=== PATIENT | female | born 1990 | race Caucasian/White ===

== ENCOUNTER 2022-03-24 08:02 | Outpatient (CLI) | payer OTHER, SELFPAY | END 2022-03-24 08:03 | disposition home or self-care (01) | LOC: ANHLAB 08:04 | PROVIDERS: Visit Provider Obstetrics & Gynecology | DX: R10.2 Pelvic and perineal pain (principal); Z01.818 Encounter for other preprocedural examination | CPT/HCPCS: 36415; 86850; 86900; 86901 ==

== ENCOUNTER 2022-03-25 01:03 | Day surgery (SDC) | payer OTHER, SELFPAY ==
--- NOTE | 2022-03-22 17:42 | SUR.PREOP ---
Report to the Outpatient Waiting Room, entrance under the green pavilion located off [facility], at time 0915 on date 03/25/22. OR Time: 1115. - You and your visitor will be asked a series of questions to screen for COVID 19 for your protection. - Only one visitor is allowed at this time. - The patient visitor is requested to leave or wait in car when not with patient. - A mask is required within the hospital. Patients may have clear liquids (water, carbonated beverages, clear teas, apple juice) until 3 hours prior to surgery with a maximum of 20 ounces. - NO CLEAR LIQUIDS AFTER 0815 - No food from midnight until time of surgery - Infants may have breast milk until 4 hours before surgery, formula 6 hours prior to surgery. - Children will be allowed to drink immediately following surgery. If applicable, please bring a bottle or sippy cup to assist with drinking. Juice, water, soda, and popsicles are readily available. For infants on formula, please bring formula the day of surgery. Pacifiers are allowed. Take the following medications with a SIP of water the morning of surgery: HYDROXYCHLOROQUINE, NORCO Please no make-up, nail montserratian, hairspray, perfume, deodorant, or body powder the day of surgery. No jewelry (including any body piercings) or valuables the day of surgery, leave them at home. Please take a shower or bath the night before, or the morning of, surgery with an antibacterial soap. Wear comfortable, loose fitting clothing. Children are encouraged to wear pajamas. - Jewelry must be removed prior to entering the operating room. Rings and piercings that are not removed may be cut off. - The hospital will not accept responsibility for valuables. - Please leave all valuables, including medications, at home the day of surgery. If you are going home after surgery, a licensed tow car driver must drive you home. - NO public transportation without another adult. - We recommend that an adult stay with you for 24 hours following discharge. - We also recommend that you do not drive, make important decision, drink alcoholic beverages, or take any drugs that were not prescribed by your health care provider for at least 24 hours after your discharge time. For Pediatric surgeries, we recommend two adults accompany the child home (only one inside the building at this time). Follow any additional instructions given to you from your surgeon. If you or anyone in your household have experienced Covid symptoms in the past week, please notify your surgeon or the nurse liaison at the phone number below for possible testing. Telephone instructions given to FLOYD COYNE and asked if any additional questions and then verbalized understanding. Patient advised to call surgeon office or pre surgery nurse liaison [phone] if any additional questions.
[2022-03-22 17:50] VITALS: BMI 23.5
--- NOTE | 2022-03-24 16:03 | WPDANESEPPF ---
Anes - Initial Pre Proc Eval Procedure: Operation Date: 03/25/22 11:15 Proposed Procedures p Diagnostic Laparoscopy - Taj Bob MD <Heath Jeffers DO - Last Filed: 03/24/22 16:04> Date/Time: 03/24/22 16:03 <Heath Jeffers DO - Last Filed: 03/24/22 16:04> Surgeon: Taj Bob MD <Heath Jeffers DO - Last Filed: 03/24/22 16:04> Pre Op Diagnosis: Pelvic Pain <Heath Jeffers DO - Last Filed: 03/24/22 16:04> Patient Data Age: 31 Gender: F Height: 1.55 m Weight: 56.5 kg <Heath Jeffers DO - Last Filed: 03/24/22 16:04> Allergies Allergy/AdvReac Type Severity Reaction Status Date / Time Cephalosporins Allergy Intermediate Nausea and Verified 03/25/22 09:42 Vomiting Sulfa (Sulfonamide Allergy Intermediate HIVES Verified 03/25/22 09:42 Antibiotics) <Heath Jeffers DO - Last Filed: 03/24/22 16:04> Home Medications Medication Instructions Recorded Confirmed Type estradiol 2 mg tablet 1 tablet PO DAILY 03/22/22 03/25/22 History hydrocodone 5 mg-acetaminophen 325 1 tablet PO Q4-6H PRN Pain 03/22/22 03/22/22 History mg tablet hydroxychloroquine 200 mg tablet 1 tablet PO BID 03/22/22 03/25/22 History hydrocodone 5 mg-acetaminophen 325 1 tablet PO Q4H PRN pain #30 tabs 03/25/22 Rx mg tablet <Heath Jeffers DO - Last Filed: 03/24/22 16:04> HCG: negative <Shoshana Cordoba CRNA - Last Filed: 03/25/22 10:42> Patient hx anesthesia problems: none <Shoshana Cordoba CRNA - Last Filed: 03/25/22 10:42> Family hx anesthesia problems: none <Shoshana Cordoba CRNA - Last Filed: 03/25/22 10:42> Results Review: All pre-operative results and documents have been reviewed as part of the pre-operative evaluation. <Heath Jeffers DO - Last Filed: 03/24/22 16:04> [facility] Past Medical History Medical History: Medical History Anemia Asthma Endometriosis Migraine Systemic lupus erythematosus <Heath Jeffers DO - Last Filed: 03/24/22 16:04> Surgical History Surgical History: Surgical History History of History of hysterectomy <Heath Jeffers DO - Last Filed: 03/24/22 16:04> Social History Social History: Social History Smoking status: Never smoker Living arrangements: with family Spiritual care concerns: No <Heath Jeffers DO - Last Filed: 03/24/22 16:04> Anes - Eval Final PreProcedure Day of Procedure 03/24/22 16:03 <Heath Jeffers DO - Last Filed: 03/24/22 16:04> Patient weight: normal <Heath Jeffers DO - Last Filed: 03/24/22 16:04> Heart: regular rate and rhythm <Heath Jeffers DO - Last Filed: 03/24/22 16:04> Lungs: clear to auscultation <Heath Jeffers DO - Last Filed: 03/24/22 16:04> Airway: Mallampati scale class II <Heath Jeffers DO - Last Filed: 03/24/22 16:04> Neurological: alert and oriented <Heath Jeffers DO - Last Filed: 03/24/22 16:04> Last oral intake: >/= 8 hours <Heath Jeffers DO - Last Filed: 03/24/22 16:04> ASA classification: III <Heath Jeffers DO - Last Filed: 03/24/22 16:04> Emergent: no <Heath Jeffers DO - Last Filed: 03/24/22 16:04> Anesthetic plan: proceed <Heath Jeffers DO - Last Filed: 03/24/22 16:04> Anesthesia type and monitoring: general ETT and standard monitoring <Heath Jeffers DO - Last Filed: 03/24/22 16:04> Results Review: All pre-operative results and documents have been reviewed as part of the pre-operative evaluation. <Heath Jeffers DO - Last Filed: 03/24/22 16:04> Informed Consent: The patie
[2022-03-25] VITALS (10 sets, daily range): BP systolic 110–128; BP diastolic 77–94; PULSE 52–88; RESP 11–16; TEMP 36.3–36.4; O2SAT 98–100; BMI 23.1
--- NOTE | 2022-03-25 07:00 | WPDHPUPDATE1 ---
History and Physical Update Update Date/Time: 03/25/22 07:00 History and Physical has been reviewed, including an updated exam of the patient. There are NO changes in the patient's condition. Risks, benefits, and alternatives have been discussed and questions answered. Patient agrees to proceed with procedure.
--- NOTE | 2022-03-25 07:01 | PM.IMHP ---
H&P: HPI History of Present Illness Date/Time: 03/25/22 07:01 Chief Complaint: Pelvic pain Narrative: this is a 31-year-old status post Hyst and bilateral salpingo-oophorectomy with severe pain imaging has been negative. She has a history of endometriosis and this is expected risks and benefits of the procedure reviewed PMFSH Past Medical History Medical History Anemia Asthma Endometriosis Migraine Systemic lupus erythematosus Surgical History Surgical History History of History of hysterectomy Social History Social History Smoking status: Never smoker Living arrangements: with family Spiritual care concerns: No Meds Home Medications and Allergies Home Medications Medication Instructions Recorded Confirmed Type estradiol 2 mg tablet 1 tablet PO DAILY 03/22/22 03/22/22 History hydrocodone 5 mg-acetaminophen 325 1 tablet PO Q4-6H PRN Pain 03/22/22 03/22/22 History mg tablet hydroxychloroquine 200 mg tablet 1 tablet PO BID 03/22/22 03/22/22 History hydrocodone 5 mg-acetaminophen 325 1 tablet PO Q4H PRN pain #30 tabs 03/25/22 Rx mg tablet Allergies Allergy/AdvReac Type Severity Reaction Status Date / Time Cephalosporins Allergy Intermediate Nausea and Unverified 03/22/22 17:33 Vomiting Sulfa (Sulfonamide Allergy Intermediate HIVES Unverified 03/22/22 17:57 Antibiotics) Exam : External Female Exam: normal external appearance Speculum Exam - Vagina: normal appearance of the vagina Speculum Exam - Cervix: Cervix absent Bimanual exam- vagina & uterus: uterus absent Bimanual Exam- Adnexa, other: tender bilaterally Assessment and Plan Assessment and plan (1) Pelvic pain: Code(s): R10.2 - Pelvic and perineal pain Status: Acute Plan laparoscopy
[2022-03-25] MEDS: ACETAMINOPHEN 500 MG TABLET 1000 MG PO (09:55)
[2022-03-25] MEDS: KETOROLAC 15 MG/ML VIAL (*BKC) IV PUSH (09:55)
[2022-03-25] MEDS: LACTATED RINGERS 1,000 ML 30 ML IV CONT ×2 (09:55→11:26)
--- NOTE | 2022-03-25 11:17 | P.OP_ITS ---
Procedure Note - Detailed Date of Procedure 03/25/22 Pre-op Diagnosis Pelvic Pain Post-op Diagnosis Other (Minimal endometriosis) Procedure Performed Laparoscopic destruction of endometriosis Surgeon Taj Bob MD Anesthesia General Indications This is a 31-year-old status post hysterectomy and bilateral salpingo- oophorectomy with severe pelvic pain Findings Absent uterus ovaries and tubes. Fairly clean appearing pelvis. A small area of powder burn endometriosis along the right uterosacral ligament Description of Procedure Patient was prepped and draped in the normal sterile fashion placed in the dorsal lithotomy position. Under excellent general endotracheal anesthesia weighted speculum placed in posterior fornix vagina. Sponge stick was placed in the bladder drained of clear urine the weighted speculum was removed and gloves were changed. An infraumbilical incision made the Veress needle passed in the abdomen. Abdomen filled with CO2 gas [id number]. 5mm trocar was advanced directly into the abdomen downside visualized no injury seen. Gas reattached. Plate patient placed in Trendelenburg and a suprapubic incision made with a 5mm trocar advanced under direct visualization assuring no injury. The above findings were seen. Using monopolar cautery at 35 w per 2nd the small powder burn area on the right uterosacral was cauterized with complete disc destruction. The pelvis was relatively clean outside of that. The appendix appeared within normal limits. Photo documentation was undertaken. The lower site removed. The gas removed from the abdomen. The upper site removed. The incisions closed with 4 Monocryl and glue. The instruments removed from the vagina. The patient went to recovery in satisfactory condition. All sponge, needle, instrument counts were correct. There were not no immediate complications Estimated Blood Loss 5 Drains No Packing No Pathology None sent Complications No immediate complications Condition Stable Disposition PACU
[2022-03-25] MEDS: fentaNYL CITRATE INJ (*CRX) 100 MCG/2 ML VIAL 25 MCG IV PUSH ×4 (11:52→12:17)
[2022-03-25] MEDS: oxyCODONE HCL (*CRX) 5 MG TAB IR PO (12:52)
== END 2022-03-25 13:50 | disposition home or self-care (01) ==
PROVIDERS: PCP Family Medicine; Visit Provider Obstetrics & Gynecology
PROC: (CPT 49320; principal; 2022-03-25 11:15)
DX: R10.2 Pelvic and perineal pain (principal); N80.3 Endometriosis of pelvic peritoneum; Z90.710 Acquired absence of both cervix and uterus; M32.9 Systemic lupus erythematosus, unspecified
CPT/HCPCS: 58662; A9270; J1100; J1885; J2250; J2405; J2704; J3010; J7120

== ENCOUNTER 2023-08-21 10:41 | Outpatient (CLI) | payer OTHER, SELFPAY ==
--- NOTE | ~2023-08-21 | MR_ITS ---
MR breast BI wo/w con 08/21/2023 12:34 SENIOR NET C DEVELOPER INDICATION: Evaluate for implant rupture. TECHNIQUE: MRI of the breasts perform using breast implant protocol sequences: Axial vibrant, axial T 2 fast spin-echo, sagittal T2, sagittal T2 STIR with and without silicone suppression and postcontras t sequences including axial vibrant and post axial T2 fast spin echo STIR. Postcontrast sequences per formed following IV administration 11 cc MultiHance. COMPARISON: No prior studies for comparison. FINDINGS: There are subpectoral silicone implants. There are normal radial folds in both implants. No evidence for keyhole sign, subcapsular line sign or Linguine sign to suggest intracapsular implant r upture. No evidence for extracapsular implant rupture. No abnormal enhancing masses in either breast. No abnormal axillary or internal mammary lymph nodes. IMPRESSION: 1: Unremarkable MRI of the breasts. No evidence for implant rupture or abnormal parenchymal mass in e ither breast. Consider follow-up diagnostic bilateral mammogram. BI-RADS CATEGORY 1 - NEGATIVE Reviewed, dictated and finalized at location A. OR NET C DEVELOPER IMPRESSION: 1: Unremarkable MRI of the breasts. No evidence for implant rupture or abnormal parenchymal mass in either breast. Consider follow-up diagnostic bilateral roly mogram. BI-RADS CATEGORY 1 - NEGATIVE
== END 2023-08-21 10:42 | disposition home or self-care (01) ==
PROVIDERS: PCP Family Medicine; Visit Provider Obstetrics & Gynecology
DX: N64.4 Mastodynia (principal)
CPT/HCPCS: 77049; A9577; C8908

== ENCOUNTER 2024-01-01 02:37 | Day surgery (SDC) | payer OTHER, SELFPAY ==
[2023-12-27 12:00] VITALS: BMI 22.6
--- NOTE | 2023-12-27 12:04 | PC.NURSE ---
Report to the Outpatient Waiting Room, entrance under the green pavilion located off [facility], at time 1000 on date 01/01/24. Planned Procedure Time: 1200. Time changes happen often and if your time is changed the preop area will call you the afternoon before. - You and your visitor will be asked to self-screen and do not enter if you have any COVID symptoms. - A mask is optional within the hospital at this time. Patients may have clear liquids (water, carbonated beverages, clear teas, apple juice) until 8 hours prior to surgery with a maximum of 20 ounces. - No food from midnight until time of surgery Take the following medications with a SIP of water the morning of surgery: GABAPENTIN DO NOT STOP ANY OF YOUR OTHER PRESCRIPTION MEDICATIONS PRIOR TO SURGERY ?EXCEPT THE FOLLOWING Medications to discontinue per physician: N/A Date to take last dose: N/A Please no make-up, nail welsh, hairspray, perfume, deodorant, or body powder the day of surgery. No jewelry (including any body piercings) or valuables the day of surgery, leave them at home. Please take a shower or bath the night before, or the morning of, surgery with an antibacterial soap. Wear comfortable, loose fitting clothing. Children are encouraged to wear pajamas. - Jewelry must be removed prior to entering the operating room. Rings and piercings that are not removed may be cut off. - The hospital will not accept responsibility for valuables. - Please leave all valuables, including medications, at home the day of surgery. If you are going home after surgery, a licensed driver helper must drive you home. - NO public transportation without another adult if you receive anesthesia. - We recommend that an adult stay with you for 24 hours following discharge. - We also recommend that you do not drive, make important decision, drink alcoholic beverages, or take any drugs that were not prescribed by your health care provider for at least 24 hours after your discharge time. Follow any additional instructions given to you from your surgeon. If you or anyone in your household have experienced Covid symptoms in the past week, please notify your surgeon or the nurse liaison at the phone number below for possible testing. Telephone instructions given to PT Fran BARRIENTOS and asked if any additional questions and then verbalized understanding. Patient advised to call surgeon office or pre surgery nurse liaison [phone] if any additional questions.
[2024-01-01] VITALS (8 sets, daily range): BP systolic 103–132; BP diastolic 70–84; PULSE 65–97; RESP 13–20; TEMP 36.1–37.1; O2SAT 99–100
[2024-01-01] MEDS: LACTATED RINGERS 1,000 ML 30 ML IV CONT ×2 (11:00→13:29)
--- NOTE | 2024-01-01 11:19 | WPDANESEPPF ---
Anes - Initial Pre Proc Eval Procedure: Operation Date: 01/01/24 12:00 Proposed Procedures p Bilateral Breast Implant Removal with Capsulectomy/Capsulotomy - Ari Ruiz MD Date/Time: 01/01/24 11:19 Surgeon: Ari Ruiz MD Pre Op Diagnosis: breast pain, hx breast aug Patient Data Age: 33 Gender: F Height: 1.55 m Weight: 54.45 kg Allergies Allergy/AdvReac Type Severity Reaction Status Date / Time Cephalosporins Allergy Intermediate Nausea and Verified 01/01/24 10:11 Vomiting Sulfa (Sulfonamide Allergy Intermediate HIVES Verified 01/01/24 10:11 Antibiotics) meloxicam AdvReac Mild Other Verified 01/01/24 10:11 Home Medications Medication Instructions Recorded Confirmed Type estradiol 2 mg tablet 1 tablet PO DAILY 03/22/22 01/01/24 History gabapentin 100 mg capsule 100 mg PO BID 12/27/23 01/01/24 History Patient hx anesthesia problems: none Family hx anesthesia problems: none Results Review: All pre-operative results and documents have been reviewed as part of the pre-operative evaluation. [facility] Past Medical History Medical History Anemia Asthma Endometriosis Migraine Systemic lupus erythematosus Surgical History Surgical History History of History of hysterectomy Family History Family History (Updated 09/20/23 @ 16:51 by Keke Peoples CMA) Father Depression Mother Ovarian cancer Diabetes mellitus Heart disease Other Asthma Social History Social History (Updated 09/20/23 @ 14:07 by Keke Peoples CMA) Smoking status: Never smoker Alcohol intake: current Alcohol use details: RARE Substance use: never Substance use type: does not use Do You Feel Safe in your Home?: Yes Lack of Transportation: No Lack of Food: Never True Current Housing: I Have Housing Concerned About Future Housing: No Difficulty Paying Gas/Electric Bills: No Difficulty Paying for Meds: No Currently Unemployed: No Education: Associate Degree Difficulty w/ Childcare or Family Care: No Living arrangements: with family Spiritual care concerns: No Anes - Eval Final PreProcedure Day of Procedure 01/01/24 11:19 Patient weight: normal Heart: regular rate and rhythm Lungs: clear to auscultation Airway: Mallampati scale class II Neurological: alert and oriented Last oral intake: >/= 8 hours ASA classification: III Emergent: no Anesthetic plan: proceed Anesthesia type and monitoring: general ETT and standard monitoring Results Review: All pre-operative results and documents have been reviewed as part of the pre-operative evaluation. Informed Consent: The patient's anesthetic plan and its attendant risks and benefits were discussed with the patient/family/POA. Questions were solicited and answers provided to the satisfaction of the patient/family/POA.
--- NOTE | 2024-01-01 11:51 | PM.HPGS ---
History of Present Illness History of Present Illness Chief complaint: breast pain, hx breast aug Narrative: Patient seen and examined in pre-operative holding area. No interval change in medical history or symptoms. Patient remembers previous discussion of benefits and alternatives to procedure. Continues to desire to proceed with bilateral breast implant and capsule removal. I reviewed the risks including but not limited to bleeding ,infection, asymmetry, undesireable cosmetic appearance, partial/total skin/nipple loss, no change or worsening of symptoms, change in sensation. I discussed the possible use of assistants and their level of participation in the case. Patient stated understanding and signed the consent form wishing to proceed Review of Systems Review of Systems: All systems reviewed & are unremarkable except as noted in HPI and below PMFSH Past Medical History Medical History Anemia Asthma Endometriosis Migraine Systemic lupus erythematosus Surgical History Surgical History History of History of hysterectomy Family History Family History (Updated 09/20/23 @ 16:51 by Keke Peoples CMA) Father Depression Mother Ovarian cancer Diabetes mellitus Heart disease Other Asthma Social History Social History (Updated 09/20/23 @ 14:07 by Keke Peoples CMA) Smoking status: Never smoker Alcohol intake: current Alcohol use details: RARE Substance use: never Substance use type: does not use Do You Feel Safe in your Home?: Yes Lack of Transportation: No Lack of Food: Never True Current Housing: I Have Housing Concerned About Future Housing: No Difficulty Paying Gas/Electric Bills: No Difficulty Paying for Meds: No Currently Unemployed: No Education: Associate Degree Difficulty w/ Childcare or Family Care: No Living arrangements: with family Spiritual care concerns: No Meds Home Medications and Allergies Home Medications Medication Instructions Recorded Confirmed Type estradiol 2 mg tablet 1 tablet PO DAILY 03/22/22 01/01/24 History gabapentin 100 mg capsule 100 mg PO BID 12/27/23 01/01/24 History Allergies Allergy/AdvReac Type Severity Reaction Status Date / Time Cephalosporins Allergy Intermediate Nausea and Verified 01/01/24 10:11 Vomiting Sulfa (Sulfonamide Allergy Intermediate HIVES Verified 01/01/24 10:11 Antibiotics) meloxicam AdvReac Mild Other Verified 01/01/24 10:11 Vital Signs Vital Signs - 24 hr 01/01/24 11:17 Temperature 37.1 C Pulse Rate 75 Respiratory Rate 16 Blood Pressure 115/83 Pulse Oximetry 99 Oxygen Delivery Room Air Exam Narrative: unchanged Assessment and Plan Assessment and plan (1) Breast pain, left: Code(s): N64.4 - Mastodynia Status: Acute Assessment and Plan: cont as above
--- NOTE | 2024-01-01 11:58 | P.OP_ITS ---
Procedure Note - Detailed Date of Procedure 01/01/24 Pre-op Diagnosis breast pain, hx breast aug Post-op Diagnosis Same Procedure Performed bilateral breast implant and capsule removal Surgeon Ari Ruiz MD Racquet Maker Lucretia Lowry PA-C Anesthesia General Description of Procedure Patient was seen in the preoperative holding area where the breasts were marked and consent form signed. Lesion was taken back to the operating room and placed on the table in supine position. Time-out was performed with Anesthesia, surgeon, and staff agreeing on patient's name, site, and surgery to be performed. SCDs were placed on the lower extremities and inflated. Antibiotics were given IV. After general anesthesia was administered the breasts were prepped and draped in the usual sterile fashion. I took my attention to the left breast were proceeded with making an 8 cm wide incision around the inframammary fold below the nipple extending laterally with a 15 blade scalpel through skin and dermis. Bovie was then used to go through subcutaneous tissue down to the left breast implant capsule. I proceeded with using Bovie cautery and lighted retractors to complete a near-total capsulectomy with removal of the intact silicone implant. After this was completed I irrigated with normal saline. Hemostasis was obtained with Bovie. I proceeded with placing a 7 Ecuadorean LILIA drain in the cavity. It was noted that her implants had been placed in a dual plane manner. The decision was made not to pexy the Colon major muscle down to chest wall. The cyst incision was closed with 3-0 Vicryl for deep dermal closure 4-0 Monocryl was used for skin. Her left breast IMF had bottomed out and was lower so in doing my deep dermal sutures a exceed this down to chest wall with 3-0 Vicryl to better define the inferior mammary fold. The drain was hooked to bulb suction. And onto my attention to the right breast where a similar procedure was performed. We made an 8 cm wide incision along the inframammary fold below the nipple extending laterally. I used Bovie to go through subcutaneous tissue down to the breast capsule. Again a near-complete subtotal capsulectomy and right breast implant removal was performed with Bovie. The silicone implant was intact irrigated with normal saline. Hemostasis was obtained with Bovie. I placed another 7 Ecuadorean drain in the right breast pocket. The incision was closed with 3-0 Vicryl for deep dermal closure followed by 4-0 Monocryl for sk in. The drain was hooked to bulb suction 10 cc of 1% lidocaine with epinephrine and 0.5% Marcaine plain were injected along the incision and anterior axillary line of each breast. The drains were sutured to skin with 2-0 silk. There was reasonable symmetry in appearance to the breast. The nipples appeared viable with good cap refill. A dressing of Mastisol and Steri-Strips followed by 4 x 4 gauze ABD pads and a breast binder were then applied. The patient was awakened from anesthesia and transferred to the recovery room in stable conditions. Complications: None Estimated blood loss: 30 cc Disposition: Patient tolerated the procedure well on the going home later today. Lucretia Lowry PA-C was essential for positioning, retraction, closure and dressing placement. [facility] [place] Surgery - Charge Forward: Surgery Billing ([id number] same for lucretia adding modifier )
[2024-01-01] MEDS: ceFAZolin 2 GM/D5W 50 ML 2 GM/50 ML BAG IVPB (12:10)
[2024-01-01] MEDS: fentaNYL CITRATE INJ (*CRX) 100 MCG/2 ML VIAL 25 MCG IV PUSH ×4 (13:46→14:08)
--- NOTE | 2024-01-01 13:54 | SUR.PHASEI ---
1352: Simple mask removed.
[2024-01-01] MEDS: oxyCODONE HCL (*CRX) 5 MG TAB IR PO (14:35)
== END 2024-01-01 15:20 | disposition home or self-care (01) ==
PROVIDERS: PCP Family Medicine; Visit Provider Plastic Surgery
PROC: (CPT 19371; principal; 2024-01-01 12:00)
DX: N64.4 Mastodynia (principal); D64.9 Anemia, unspecified; J45.909 Unspecified asthma, uncomplicated; N80.9 Endometriosis, unspecified; M32.9 Systemic lupus erythematosus, unspecified; Z98.82 Breast implant status; Z98.890 Other specified postprocedural states; Z80.41 Family history of malignant neoplasm of ovary; Z82.49 Family history of ischemic heart disease and other diseases of the circulatory system
CPT/HCPCS: 19371; 88300; 88304; A9270; J0690; J1100; J1170; J1200; J2250; J2405; J2704; J3010; J7120